=== PATIENT | male | born 1975 | race Caucasian/White ===

== ENCOUNTER 2025-01-05 19:17 | Emergency (ER) | payer OTHER, SELFPAY ==
--- NOTE | 2025-01-05 19:38 | CRLHL7_ITS ---
For Patients: As a result of the Cures Act, medical imaging exams and procedure reports are released immediately into your electronic medical record. You may view this report before your referring provider. If you have questions, please contact your health care provider. Indication: Chain saw injury. Technique: Left hand, 3 views. Comparison: None. Findings/Impression: Limited evaluation of lateral imaging secondary to positioning. Bones: Alignment is normal. No displaced fractures or bone lesions. Joint spaces: Unremarkable. Soft tissues: Multifocal 4th and 5th digit laceration. No radiopaque foreign bodies. Dictated by Yared Olivia MD @ 01/05/2025 8:01:55 PM (Electronically Signed)
[2025-01-05 19:41] VITALS: BP 139/99; PULSE 94; RESP 16; TEMP 36.7; O2SAT 98; BMI 43.7
[2025-01-05] MEDS: TETANUS/DIPHTH/PERTUSSIS 0.5 ML SYRINGE IM (19:58)
[2025-01-05] MEDS: lidocaine HCL 2 % MULTIDOSE 20 ML VIAL INJECTION (19:59)
--- NOTE | 2025-01-05 20:11 | ED.GENADULT ---
HPI - General Adult General Chief complaint: Laceration/Wound Stated complaint: cut fingers with chainsaw Time Seen by Provider: 01/05/25 19:38 Source: patient Mode of arrival: ambulatory Limitations: no limitations History of Present Illness HPI narrative: 49 year male presenting today with lacerations to the 4th and 5th digits after his chain saw jumped. Denies other injury. Last tetanus shot was in 2011. Related Data Previous Rx's ?Medication ?Instructions ?Recorded cefadroxil 500 mg capsule 500 mg PO BID 7 days #14 caps 01/05/25 Allergies Allergy/AdvReac Type Severity Reaction Status Date / Time No Known Drug Allergies Allergy Verified 01/05/25 19:43 Review of Systems Status of ROS: Reports: 6 or more systems reviewed and unremarkable except as noted in History and below PFSH PFSH Medical History Sleep apnea ?G47.30 - Sleep apnea, unspecified (ICD-10) Surgical History H/O arthroscopy of left knee (05/05/14) ?Z98.890 - Other specified postprocedural states (ICD-10) History of arthroscopy of right knee ?Z98.890 - Other specified postprocedural states (ICD-10) Family History Mother Diabetes Stroke Social History Narrative: Hx of chewing tobacco Smoking Status: Former smoker How often do you have a drink containing alcohol: monthly or less AUDIT-C Alcohol total score: 1 Non-prescribed substance use: denies use Exam Narrative: Exam Narrative: Obese, well-developed patient in no acute distress. Alert and oriented. Answers questions appropriately. Mood and affect are appropriate. Thoughts are goal oriented and rational. No tangential or magical thinking noted. Patient speaks in full sentences without needing to catch his breath. HEENT: Normocephalic atraumatic. Extraocular muscles are intact. Conjunctivae are moist without any icterus noted. Moist mucous membranes. Extremities: Patient has flap lacerations of the 4th and 5th digit, both flaps go down to the tendon, tendons are intact. He has full range of motion of the fingers with flexion and extension. No active arterial bleeds. Const: Vital Signs, click to edit/add: Vital Signs - 24 hr 01/05/25 19:41 Temperature 98.1 F Pulse Rate [Pulse Oximeter] 94 Respiratory Rate 16 Blood Pressure [Ri ght Upper Arm] 139/99 H Pulse Oximetry 98 Oxygen Delivery Me thod Room Air Course Course ED Course: X-ray of the hand was obtained, read by me, does not show any acute fractures or bony involvement. Hand was soaked. Digital blocks were performed with lidocaine with 4th and 5th digits. The wounds were then explored and irrigated. Seven sutures with 4-0 Ethilon placed in the 5th digit and 11 sutures on the 4th digit. No subcutaneous sutures were necessary. Tetanus shot was updated. Vital Signs Vital signs: Initial Vital Signs Temperature 98.1 F 01/05/25 19:41 Temperature Source Temporal Artery Scan 01/05/25 19:41 Pulse Rate 94 01/05/25 19:41 Respiratory Rate 16 01/05/25 19:41 Blood Pressure 139/99 H 01/05/25 19:41 Blood Pressure Mean 112 H 01/05/25 19:41 Blood Pressure Position Sitting 01/05/25 19:41 Pulse Oximetry 98 01/05/25 19:41 Oxygen Delivery Method Room Air 01/05/25 19:41 Vital Signs Temperature 98.1 F 01/05/25 19:41 Pulse Rate 94 01/05/25 19:41 Respiratory Rate 16 01/05/25 19:41 Blood Pressure 139/99 H 01/05/25 19:41 Pulse Oximetry 98 01/05/25 19:41 Oxygen Delivery Method Room Air 01/05/25 19:41 Temperature 98.1 F 01/05/25 19:41 Pulse Rate 94 01/05/25 19:41 Respiratory Rate 16 01/05/25 19:41 Blood Pressure 139/99 H 01/05/25 19:41 Pulse Oximetry 98 01/05/25 19:41 Oxygen Delivery Method Room Air 01/05/25 19:41 Medications Administered Medications: Discontinued Medications Generic Name Dose Route Start Last Admin Trade Name Freq PRN Reason Stop Dose Admin Diphtheria/Tetanus/Acell Pertussis 0.5 ml 01/05/25 19:38 01/05/25 19:58 Tetanus/Diphth/Pertussis 0.5 Ml Syringe IM 01/05/25 19:39 0.5 ml .ONCE ONE Administration Lidocaine HCl 20 ml 01/05/25 19:38 01/05/25 19:59 Lidocaine Hcl 2 % Multidose 20 Ml Vial INJECTION 01/05/25 19:39 20 ml ONCE ONE Administration Medical Decision Making MDM Narrative Medical decision making narrative: 49-year-old male with lacerations to the 4th and 5th digits of the left hand. Sutured per above. Given the depth of the lacerations, will place the patient on antibiotics for the next week. Imaging Data X-ray hand: Attestation: I have reviewed the pertinent imaging results. Radiologist's impression: Technique: Left hand, 3 views. Comparison: None. Findings/Impression: Limited evaluation of lateral imaging secondary to positioning. Bones: Alignment is normal. No displaced fractures or bone lesions. Joint spaces: Unremarkable. Soft tissues: Multifocal 4th and 5th digit laceration. No radiopaque foreign bodies. Discharge Plan Discharge Clinical Impression: Laceration Patient Disposition: Home, Self-Care Condition: Improved Additional Instructions: Keep wound clean and dry. Do not soak such as taking baths, swimming or doing dishes. Follow-up in approximately 10 days for suture removal with your primary care provider. Watch for signs and symptoms of infection including increasing redness of the area, purulent drainage, or fever. If this occurs follow-up right away with your doctor or return to the ER. Take all antibiotics as prescribed. Okay to take 1st dose tomorrow morning. Avoid making a fist as this may rip out the sutures. Prescriptions: New cefadroxil 500 mg capsule 500 mg PO BID 7 Days Qty: 14 0RF Follow Up/Referrals: Cesar Fontana MD [Primary Care Provider, Internal Medicine] Stand Alone Forms: [facility] Info Instructions
== END 2025-01-05 20:36 | disposition home or self-care (01) ==
LOC: ED 20:29
PROVIDERS: Emergency Provider Family Medicine; PCP Internal Medicine
DX: S61.215A Laceration without foreign body of left ring finger without damage to nail, initial encounter (principal); S61.217A Laceration without foreign body of left little finger without damage to nail, initial encounter; W29.3XXA Contact with powered garden and outdoor hand tools and machinery, initial encounter
CPT/HCPCS: 12001; 73130; 90471; 90715; 99284